=== PATIENT | male | born 1935 | race Caucasian/White ===

== ENCOUNTER 2021-01-29 17:52 | Emergency (ER) | payer MEDICARE, OTHER ==
[~2021-01-29] VITALS: Ht 182.9 cm; Wt 83.9 kg
[~2021-01-29 17:52] MED LIST: ALLOPURINOL100 MG PO; AMLODIPINE BESY10 MG PO; ATORVASTATIN CA80 MG PO; BENAZEPRIL HCL40 MG PO; LEVOTHYROXINE25 MCG PO; LIDODERM700 MG TOP; OMEPRAZOLE20 MG PO
[2021-01-29] MEDS ORDERED: GABAPENTIN300 MG PO (18:20)
== END 2021-01-29 20:18 | disposition home or self-care (01) ==
LOC: ED 17:52
DX: R09.89 Other specified symptoms and signs involving the circulatory and respiratory systems (principal); I10 Essential (primary) hypertension; M10.9 Gout, unspecified; Z88.5 Allergy status to narcotic agent; Z79.899 Other long term (current) drug therapy
CPT/HCPCS: 71045; 80053; 85025; 99283-25

== ENCOUNTER 2021-05-13 16:55 | Emergency (ER) | payer MEDICARE, OTHER ==
[~2021-05-13] VITALS: Ht 182.9 cm; Wt 68.0 kg
[~2021-05-13 16:55] MED LIST changes: +GABAPENTIN300 MG PO
--- NOTE | 2021-05-14 18:58 | EKG ---
[facility] [address] [facility] [place] [address] Signed Sinus bradycardia with marked sinus arrhythmia Left anterior fascicular block Abnormal ECG No previous ECGs available Confirmed by ALEX BORDEN MD ([id number] on 05/14/2021 6:58:21 PM Electronically Signed By: ALEX BORDEN MD [id number] PATIENT NAME: MARIONLOUANN G Electrocardiogram DATE OF : 33 PHYSICIAN: ALEX OBRDEN MD REPORT #: [id number] REPORT IS CONFIDENTIAL AND NOT TO BE RELEASED WITHOUT AUTHORIZATION
== END 2021-05-14 00:40 | disposition home or self-care (01) ==
LOC: ED 16:55
DX: R53.1 Weakness (principal); R47.02 Dysphasia; M89.9 Disorder of bone, unspecified; K22.2 Esophageal obstruction; N40.0 Benign prostatic hyperplasia without lower urinary tract symptoms; I10 Essential (primary) hypertension; M10.9 Gout, unspecified; Z88.5 Allergy status to narcotic agent; Z79.899 Other long term (current) drug therapy; Z20.822 Contact with and (suspected) exposure to COVID-19
CPT/HCPCS: 70450; 71046; 71260; 74177; 80053; 81001; 82553; 83735; 85007; 85025; 93005; 93010; 99285-25; C9803; J7121; Q9967; U0003